=== PATIENT | male | born 1985 | race Caucasian/White ===

== ENCOUNTER 2019-04-01 19:32 | Emergency (ER) | payer BC ==
[2019-04-01 19:51] VITALS: BP 157/73; PULSE 56; TEMP 98.6; BMI 30.5
--- NOTE | 2019-04-01 19:51 | PDOC ---
Rapid Medical Evaluation Chief Complaint: Injury Time Seen by Provider: 04/01/19 19:50 Medical Evaluation: Allergies Allergy/AdvReac Type Severity Reaction Status Date / Time No Known Allergies Allergy Verified 04/01/19 19:47 Vital Signs Temp Pulse Resp BP Pulse Ox 98.6 F 56 L 18 157/73 96 04/01/19 19:48 04/01/19 19:48 04/01/19 19:48 04/01/19 19:48 04/01/19 19:48 04/01/19 19:51 I have performed a brief in-person evaluation of this patient. The patient presents with a chief complaint of: head injury Pertinent physical exam findings:stable and in NAD, non-focal I have ordered the following: head ct The patient will proceed to the ED for further evaluation. 04/01/19 20:59
--- NOTE | 2019-04-01 21:40 | PDOC ---
History of Present Illness - General Chief Complaint: Injury Stated Complaint: SENT BY PCP FOR CT Time Seen by Provider: 04/01/19 19:50 History Source: Patient - History of Present Illness Initial Comments: 04/01/19 21:50 Chief complaint: Injury Patient is a healthy 33-year-old male who states he was working, they were removing ceiling and a pole fell and hit him in the head and left shoulder. No LOC Patient has a julio to the left side of his head and shoulder pain patient is alert and oriented and ambulatory. Patient went to urgent care and they sent him to the ER to get a head CT, patient does not know when his last tetanus was GENERAL/CONSTITUTIONAL: No fever, weakness. dizziness HEAD, EYES, EARS, NOSE AND THROAT: No change in vision. No ear pain or discharge. No sore throat. CARDIOVASCULAR: No chest pain RESPIRATORY: No shortness of breath or cough GASTROINTESTINAL: No pain, nausea, vomiting, diarrhea or constipation GENITOURINARY: No dysuria MUSCULOSKELETAL: No neck or back pain, + left shoulder SKIN: No rash NEUROLOGIC: No headache, vertigo, loss of consciousness, or loss of sensation. GENERAL: The patient is awake, alert, and fully oriented, in no acute distress. HEAD: Abrasion to left parietal, no deformity, otherwise normal with no signs of trauma. EYES: Pupils equal, round and reactive to light, sclera anicteric, conjunctiva clear. ENT: pharynx: no erythema, no exudate, uvula midline NECK: supple CHEST: clear, nontender, rr ABD: soft, nontender BACK: no tenderness or signs of injury EXTREMITIES: Left shoulder with mild tenderness, no deformity, no wounds, patient is unable to lift arm more than about 60 degrees due to pain, able to do passive range to about 90 degrees. No other injuries, neurovascular intact. Rest of extremities, normal range of motion, no edema. NEUROLOGICAL: Normal speech, normal gait. Cranial nerves II through XII grossly intact, no gross focal abnormalities SKIN: Warm, Dry Past History - Past Medical History Allergies/Adverse Reactions: Allergies Allergy/AdvReac Type Severity Reaction Status Date / Time No Known Allergies Allergy Verified 04/01/19 19:47 Home Medications: Ambulatory Orders NK [No Known Home Medication] 04/01/19 COPD: No - Psycho Social/Smoking Cessation Hx Smoking History: Never smoked *Physical Exam - Vital Signs Last Vital Signs Temp Pulse Resp BP Pulse Ox 98.6 F 56 L 18 157/73 96 04/01/19 19:48 04/01/19 19:48 04/01/19 19:48 04/01/19 19:48 04/01/19 19:48 ED Treatment Course - RADIOLOGY Radiology Studies Ordered: Category Date Time Status HEAD CT WITHOUT CONTRAST [CT] Stat CT Scan 04/01/19 19:51 Completed Medical Decision Making - Medical Decision Making 04/01/19 21:52 33-year-old male who was hit on the head with a heavy wooden pole, no LOC but has large abrasion on left-sided head, sent from urgent care to have head CT. Also with left shoulder pain limited range of motion. Patient also needs tetanus update. Head CT is negative, shoulder xray negative. Discussed issues, findings, results, applicable medications and treatments and follow-up. All these were understood and all questions were answered Discharge - Discharge Information Problems reviewed: Yes Clinical Impression/Diagnosis: Head injury Qualifiers: Encounter type: initial encounter Qualified Code(s): S09.90XA - Unspecified injury of head, initial encounter Shoulder injury Qualifiers: Encounter type: initial encounter Laterality: left Qualified Code(s): S49.92XA - Unspecified injury of left shoulder and upper arm, initial encounter Condition: Stable Disposition: HOME - Admission No - Follow up/Referral - Patient Discharge Instructions Patient Printed Discharge Instructions: DI for Closed Head Injury, DI for Shoulder Pain Additional Instructions: Return to the nearest ER if worsening headache, nausea, vomiting, unsteady or worsening symptoms. You can take Tylenol every 4 hours or Motrin 600 mg every 6 hours for pain and headache Limit reading, computer worker, videogames, texting which can make symptoms worse. You can apply ice for 20 minutes every 2 hours for the next 2 days Call the orthopedist tomorrow and follow up with your doctor this weak - Post Discharge Activity
[2019-04-01] MEDS ORDERED: DIPHTH,PERTUSS(ACELL),TET 0.5 ML DISP.SYRIN IM ONE ×2 (21:45→22:03)
== END 2019-04-01 22:14 | disposition home or self-care (01) ==
LOC: JERFT 19:32
DX: S00.01XA Abrasion of scalp, initial encounter (principal); W20.1XXA Struck by object due to collapse of building, initial encounter; Y93.H3 Activity, building and construction; Y92.61 Building [any] under construction as the place of occurrence of the external cause; Y99.0 Civilian activity done for income or pay
CPT/HCPCS: 70450-TC; 73030-TC-LT-FY; 90715; 99281-25